=== PATIENT | female | born 1995 | race African-American/Black ===

== ENCOUNTER 2018-04-28 21:08 | Emergency (ER) | payer OTHER ==
[~2018-04-28] VITALS: Ht 170.2 cm; Wt 63.5 kg
[~2018-04-28 21:08] MED LIST: ATHLETE'S FOOT60 GM TP; BACTRIM DS TAB1 EACH PO; CORTIZONE-10 PL28 GM TP; DOXYCYCLINE 10100 MG PO; HYDROCODONE-APA1 TA1 PO; IBUPROFEN 800800 M1 PO; IBUPROFEN 800800 MG PO; KEFLEX500 MG PO; LOTRISONE CREAM15 GM TP; MIRALAX17 G1 PO; MIRALAX255 GM PO; MOBIC7.5 M1 PO; NOHOMEMEDICATIONS; PREDNISONE 10 M10 M1 PO; PREDNISONE 20 M20 M1 PO; TRAMADOL 50 MG50 MG PO; ZPAK PO
[2018-04-28 22:23] VITALS: BP 120/74
== END 2018-04-28 22:26 | disposition home or self-care (01) ==
LOC: M.ERS 21:08
DX: R22.0 Localized swelling, mass and lump, head (principal); F17.200 Nicotine dependence, unspecified, uncomplicated; Z90.89 Acquired absence of other organs; Z90.49 Acquired absence of other specified parts of digestive tract; Y04.0XXA Assault by unarmed brawl or fight, initial encounter; Y93.89 Activity, other specified; Y92.89 Other specified places as the place of occurrence of the external cause; Y99.8 Other external cause status